=== PATIENT | female | born 1955 | race Caucasian/White ===

== ENCOUNTER 2017-08-31 11:57 | Day surgery (SDC) | payer BC ==
[~2017-08-31] VITALS: Ht 167.6 cm; Wt 149.7 kg
[~2017-08-31 11:57] MED LIST: ELIQUIS5 MG PO; GABAPENTIN300 MG PO; HUMALOG100 UNIT/2 SUB-Q; K-TAB ER20 MEQ PO; LANTUS100 UNITS/ SUB-Q; LASIX40 MG PO; LIPITOR40 MG PO; LISINOPRIL20 MG PO; METFORMIN HCL1000 MG PO; METOPROLOL SUC100 MG PO; MIRAPEX0.5 MG PO; NORCO 5-325 TA1 EACH PO; ROBAXIN-750750 MG PO; SERTRALINE HCL50 MG PO
[2017-08-31] MEDS ORDERED: ISOSORBIDE MON120 MG PO (13:34)
--- NOTE | 2017-08-31 16:48 | NUR ---
08/31/17 1648 Pauline Dawson 1645 PATIENT ARRIVES TO PACU AWAKE, ALERT AND ORIENTED X X3. RESP EVEN AND UNLABORED, MASK AT 6 LITERS. DENIES PAIN OR NAUSEA.
--- NOTE | 2017-09-01 13:35 | OR ---
[facility] [address], [place] [address] Signed DATE OF OPERATION: 08/31/2017 SURGEON: Leah Cosby MD PREOPERATIVE DIAGNOSES: 1. Colon screening. 2. Morbid obesity (330 pounds). 3. History of coronary artery bypass x5. 4. Ongoing sleep apnea (ASA class IV). POSTOPERATIVE DIAGNOSIS: Extensive sigmoid and left-sided diverticulosis. PROCEDURE PERFORMED: Total colonoscopy to cecum. ANESTHESIA: Intravenous sedation, propofol infusion, Dorie Lewis CRNA INDICATIONS: This 62-year-old morbidly obese white woman is a patient of Dr. Busby and has seen research chief engineer, Dr. Chávez at [facility] in the past. She has a distant history of pulmonary emboli and chronically anticoagulated with Eliquis. She is referred for screening colonoscopy. She is symptom-free as regards the colon. She is admitted to undergo screening colonoscopy, understands the risks of bleeding, infection, and perforation. FINDINGS: Complete colonoscopy was undertaken with visualization of the cecum. Numerous diverticula were seen in the left colon and sigmoid. There were no signs of polyps. The prep was quite good. DESCRIPTION OF PROCEDURE: The patient was brought to the endoscopy suite and placed in lateral decubitus position, given intravenous sedation with full cardiopulmonary monitoring by the technical program manager with propofol infusion. Digital rectal examination was normal. An Olympus video colonoscope was passed in the rectum and manipulated throughout the colon. Numerous diverticula were seen in the sigmoid and left colon. The scope was advanced beyond this ultimately to the right colon with visualization of the cecum. Electronically Signed By: LEAH COSBY MD 09/01/17 1335 PATIENT NAME: STEPHAN BREWER OPERATIVE REPORT DATE OF : 57 PHYSICIAN: LEAH COSBY MD REPORT #: [id number] REPORT IS CONFIDENTIAL AND NOT TO BE RELEASED WITHOUT AUTHORIZATION [facility] [address], [place] [address] Signed Abdominal wall stabilization and so forth were undertaken allowing for visualization of the cecum more fully. The biopsy forceps was used to grasp the mucosa behind the ileocecal valve, which was found to be normal as well. The scope was withdrawn from that point. Careful inspection upon withdrawal of scope showed no sign of polyps or colitis, but diverticula of the left colon and sigmoid. Retroflexed view of the rectum did show hypertrophied anal papillae, but no other abnormalities of concern. The scope was removed and the patient was taken to recovery room in good condition including diagnosis of sigmoid and left-sided diverticulosis. No evidence of polyps or cancer. PLAN: Recommend repeat colonoscopy in 10 years, sooner if symptoms should occur. She will return to the ongoing care of Dr. Geoffrey Busby in [place], [place]. MD IBAN Evangelista/JUAN LUIS /[id number] cc: MD Martin Watts MD Electronically Signed By: LEAH COSBY MD 09/01/17 1335 PATIENT NAME: SAWNORASTEPHAN Bledsoe OPERATIVE REPORT DATE OF : 57 PHYSICIAN: LEAH COSBY MD REPORT #: [id number] REPORT IS CONFIDENTIAL AND NOT TO BE RELEASED WITHOUT AUTHORIZATION
== END 2017-08-31 17:10 | disposition home or self-care (01) ==
LOC: OPS 11:57 → DS 11:57 → OPS 14:00
PROVIDERS: Surgery
PROC: 0DJD8ZZ Inspection of Lower Intestinal Tract, Via Natural or Artificial Opening Endoscopic (ICD-10-PCS; principal; 2017-08-31 14:00)
DX: Z12.11 Encounter for screening for malignant neoplasm of colon (principal); K57.30 Diverticulosis of large intestine without perforation or abscess without bleeding; G47.30 Sleep apnea, unspecified; E11.9 Type 2 diabetes mellitus without complications; I10 Essential (primary) hypertension; I25.2 Old myocardial infarction; K21.0 Gastro-esophageal reflux disease with esophagitis; E66.01 Morbid (severe) obesity due to excess calories; Z68.43 Body mass index [BMI] 50.0-59.9, adult; Z95.1 Presence of aortocoronary bypass graft; Z88.1 Allergy status to other antibiotic agents; Z90.49 Acquired absence of other specified parts of digestive tract; Z90.710 Acquired absence of both cervix and uterus; Z79.01 Long term (current) use of anticoagulants; Z86.711 Personal history of pulmonary embolism; Z99.89 Dependence on other enabling machines and devices; Z79.4 Long term (current) use of insulin; Z79.899 Other long term (current) drug therapy
CPT/HCPCS: J2250; J2704; J3010; J7120

== ENCOUNTER 2021-12-30 18:15 | Inpatient (IN) | payer MEDICARE ==
[~2021-12-30] VITALS: Ht 167.6 cm; Wt 96.6 kg
[~2021-12-30 18:15] MED LIST changes: +ADMELOG SO100 UNIT/1 SUB-Q; +CIPRO500 MG PO; +DIFLUCAN150 MG PO; +GLUCOPHAGE1000 MG PO; -HUMALOG100 UNIT/2 SUB-Q; +HUMALOG100 UNITS/ SUB-Q; +ISOSORBIDE MON120 MG PO; +NEURONTIN300 MG PO
[2021-12-30] MEDS ORDERED: TORSEMIDE10 MG PO (19:39)
[2021-12-30] MEDS ORDERED: OMEPRAZOLE20 MG PO (19:40)
--- NOTE | 2021-12-31 02:28 | NUR ---
PATIENT ARRIVED TO THE FLOOR VIA STRETCHER. PATIENT TRANSFERRED FROM STRETCHER TO HOSPITAL BED WITH FULL STAFF ASSISRANCE. ADMISSION COMPLETED. VITASL TAKEN AND RECORDED. IV FLUSHED AND SL PER ORDER. PATIENT IS ON RA. SKIN CARE COMPLETED. PATIENT ABLE TO MINIMALLY ASSIST WITH TURNING. MULTIPLE ALLEVYNS APPLIED. NO FURTHER NEEDS NOTED. SNACK PROVIDED BY OUTSIDE RESIDENTIAL SALES PROFESSIONAL. EDGAR DOE IN REACH. PRIMARY RN RONNY IN ROOM.
--- NOTE | 2021-12-31 02:48 | NUR ---
PT IS ADMITTED TO ROOM 114 FROM ED. SHE WAS ORIENTED TO HER ROOM INCLUDING THE CALL SYSTEM .PT IS INCONTINENT OF URINE. SHE IS CLEANED , BARRIER CREAM APPLIED TO PERIAREA, PANIS , WITH PILLOW CASES UNDER PANIS, UNDER BREASTS. PT IS TURNED INTO A RIGHT TILT POSITION TO OFF LOAD LEFT SIDE SKIN IRRITATIONS. PT IS BOOSTED IN BED. SHE IS GIVEN BROTH AND APPLESAUCE A SNACK. CALL LIGHT IN REACH. PT KNOWS NOT TO ATTEMPT OT GET OUT OF BED ON HER OWN.
--- NOTE | 2021-12-31 06:16 | NUR ---
call light answered, PT reports feeling nausea, prn nausea med given, see emar. emesis bag also provided, hob elevated. no additional needs, call light in reach.
--- NOTE | 2021-12-31 06:17 | NUR ---
pt had critical x2 troponin I in ed before arrival to medsur floor. per dr hart, no need for additional troponin labs.
--- NOTE | 2021-12-31 07:30 | NUR ---
report from marnie rn, pt with call light in nisha, nad.
--- NOTE | 2021-12-31 08:22 | NUR ---
Dr. Montoya her to assess pt. education on hypokalemia and weakness printed to pt.
--- NOTE | 2021-12-31 09:17 | NUR ---
Dr. Montoya asked me to hold on pt meds until she reviews records and assessment.
--- NOTE | 2021-12-31 09:20 | NUR ---
MICHAEL SUNSHINE AT [facility] TO REQUEST RECORDS.
--- NOTE | 2021-12-31 09:59 | NUR ---
GIDEON CALL BACK FROM [facility], SHE WILL FAX OVER RECORDS [facility]. [facility] STATES THAT WHEN THE PATIENT WAS DISCHARGED FROM THEIR FACILITY SHE WAS ABLE TO AMBULATE WITH A WALKER. [facility] STATES THAT THEY WERE UNABLE TO CONFIRM IF THE PATIENT SON MIRIAM RESIDED NEAR HER OR JUST IN CLOSE PROXIMITY. WILL AWAIT RECORDS.
--- NOTE | 2021-12-31 10:46 | NUR ---
rn assisted radiology assistant with bed bath and caitlin care. Pure wick external cath placed to suction to keep skin dry on severely obese pt with skin fold breakdown on all body folds. antifungl powder placed and assessment complete.
--- NOTE | 2021-12-31 12:00 | NUR ---
INTO PATIENT ROOM TO COMPLETE ASSESSMENT. PATIENT SON MIRIAM AT THE BEDSIDE. PATIENT AND SON STATES THEY CURRENTLY LIVE TOGETHER IN A TRAVEL TRAILER. PATIENT STATES THEY ARE LOOKING FOR A LARGER PLACE TO STAY. PATIENT WAS RECENTLY DISCHARGED FROM [facility] 12/14/21. SHE STATES WHEN SHE WAS DISCHARGED SHE WAS ABLE TO WALK WITH A WALKER. PATIENTS SON STATES IT WAS SHORTLY AFTER HER DISCHARGE FROM THAT HE NOTICED THE PATIENT BECOMING PROGRESSIVELY WEAKER. PATIENT SON STATES HE FEELS THAT THE PATIENT NEEDS TO RETURN TO [facility] FOR FURTHER PT BEFORE RETURNING TO HOME. MIRIAM STATES HE WORKS AT A LOCAL [employer] AND THOUGH IT IS NOT THE BUSY SEASON HE IS GONE DURING THE DAY. PATIENT SON IS ABLE TO SHOP AND LIFE SKILLS COORDINATOR MEDICATIONS FOR THE PATIENT IF NEEDED, WELL ASSIST AROUND THE HOME. DISCUSSED WITH PATIENT THAT MEDICARE WILL ONLY PAY FOR 20 DAYS OF REHAB POST HOSPITAL STAY WITHIN A 60 DAY PERIOD. DISCUSSED CONTACTING [facility]. THE PATIENT STATES SHE HAS MADE CONTACT WITH [facility], BUT WAS LATE TURING IN HER APPLICATION. PATIENT STATES THEY ENCOURAGED HER TO APPLY AGAIN. WILL CONTACT [facility] TO DETERMINE IF PATIENT CAN RETURN.
[2021-12-31] MEDS ORDERED: METOPROLOL SUCC25 MG PO (12:37)
[2021-12-31] MEDS ORDERED: ZESTRIL20 MG PO (12:37)
[2021-12-31] MEDS ORDERED: TYLENOL EXTRA500 MG PO (12:39)
[2021-12-31] MEDS ORDERED: MELATONIN3 MG PO (12:40)
--- NOTE | 2021-12-31 12:50 | NUR ---
REPORT RECEIVED FROM FLORY EASTON. ALL QUESTIONS ANSWERED.
--- NOTE | 2021-12-31 13:23 | NUR ---
PT LYING IN BED AWAKE. SON AT BEDSIDE. UNDER BREAST, PANNUS AND BUTTOCKS CLEANED, DRIED AND ANTIFUNGAL POWDER APPLIED. PURE WICK IN PLACE. PT TURNED TO LEFT SIDE. DENIES NEEDS AT THIS TIME. CALL LIGHT WITHIN REACH.
[2021-12-31] MEDS ORDERED: NYSTOP60 GM TOP (15:32)
[2021-12-31] MEDS ORDERED: NITROSTAT0.4 MG SL (15:36)
[2021-12-31] MEDS ORDERED: SERTRALINE HCL100 MG PO (15:38)
[2021-12-31] MEDS ORDERED: K-TAB10 MEQ PO (15:40)
--- NOTE | 2021-12-31 15:50 | NUR ---
PT RESTING AWAKE IN BED. DENIES NEEDS AT THIS TIME. CALL LIGHT WITHIN REACH.
[2021-12-31] MEDS ORDERED: BENADRYL ALLERG25 MG PO (15:56)
[2021-12-31] MEDS ORDERED: HYDROCODON-ACE1 EA10 PO (15:57)
--- NOTE | 2021-12-31 15:58 | NUR ---
MED REC COMPLETE
--- NOTE | 2021-12-31 16:50 | NUR ---
MICHAEL SUNSHINE AT [facility]R TO DISCUSS READMISSION OF THE PATIENT TO THEIR FACILITY IF NECESSARY.
--- NOTE | 2021-12-31 17:19 | NUR ---
PT RESTING AWAKE IN BED, ICE WATER REFILLED. DENIES FURTHER NEEDS AT THIS TIME. CALL LIGHT WITHIN REACH.
--- NOTE | 2021-12-31 19:42 | NUR ---
PT REPORT TAKEN. IV FLUSHED. PT HAD A BM. CLEANED CHANGED AND TURNED PT . SKIN APPEARS TO BE LESS REDDENED WITH CLEANING , BARRIER CREAM AND NYSTATIN POWDER. PT TOLERATED CARES WELL.
--- NOTE | 2021-12-31 20:37 | NUR ---
PATIENT VITALS AND I/Os CHARTED ACCORDINGLY. ROOM TIDIED. TRASH EMPTIED. CALL LIGHT LEFT WITHIN REACH. NO OTHER IMMEDIATE NEEDS AT THIS TIME.
--- NOTE | 2021-12-31 23:07 | NUR ---
PT TURNED TO RIGHT TILT POSITION WITH PILLOWS AT HER BACK AND BETWEEN HER THIGHS. PT STATES THAT FEELS BETTER. CALL LIGHT IN REACH.
--- NOTE | 2022-01-01 01:00 | NUR ---
PT TURNED TO BACK FROM RIGHT TILT. TOLERATED WELL. CALL LIGHT IN REACH.
--- NOTE | 2022-01-01 03:35 | NUR ---
PT HAD A LARGE LOOSE STOOL. SHE SLEPT THROUGH IT AND WAS UNAWARE. PT WAS CLEANED, BARRIER CREAM APPLIED , DRAW SHEET, CHUX, ATTENDS AND GOWN WERE CHANGED. PT WAS TURNED ONTO HER BACK WITH A PILLOW TO ELEVATE HER HEELS. CALL LIGHT IN REACH.
--- NOTE | 2022-01-01 06:07 | NUR ---
PT WAS TURNED TO A LEFT TILT POSITION. SHE HAS PILLOWS FOR SUPPORT. A PUREWIK IN PLACE. WARM BLANKET APPLIED. CALL LIGHT IN REACH.
--- NOTE | 2022-01-01 06:24 | NUR ---
PT RECEIVED 2 MAG RIDERS. HER AM MAG= 1.7. HER K+ = 3.6 THIS AM. PT DID HAVE 3 BMS THIS SHIFT. ALL WERE LOOSE CAAL/BROWN STOOL. PT WAS UNAWARE OF 1 STOOL SHE SLEPT THROUGH IT. SHE DOES HAVE A PUREWICK IN PLACE HOWEVER IT ONLY DRAINED A SMALL AMOUNT OF URINE DUE TO THE LOOSE STOOLS OBSTRUCTING THE FLOW. PT VSS, AFEBRILE. SKIN HAS BEEN CLEANED AND NYSTATIN POWDER OR BARRIER CREAM APPLIED. SKIN REDNESS IS REDUCED . PT IS TURNED Q 2 HRS.
--- NOTE | 2022-01-01 07:48 | NUR ---
RECJuan Ramon. BEDSIDE REPORT FROM NIGHT RN, ASSUMED ALL CARE OF PT.
--- NOTE | 2022-01-01 10:30 | NUR ---
ASSISTED PT. IN BR WITH COMPLETE SHOWER AND BED LINEN CHANGES. ORAL CARE WELL.
--- NOTE | 2022-01-01 14:00 | NUR ---
PLAN IS TO USE THE BSC FOR URINATION, PT. STATES SHE FEELS WHEN SHE HAS TO GO AND WORKED WITH PT. ON SIT TO STAND, COULD NOT AMBULATE TODAY, TOO WEAK AND GOT UPSET. SHE WILL CALL AND SHE WILL TRY USING THE BSC. IV PATENT TO MAGNESIUM RIDERS. WOUND CONSULT COMPLETED TODAY.
[2022-01-01] MEDS ORDERED: MIRALAX119 GM PO (14:15)
[2022-01-01] MEDS ORDERED: SILVADENE20 GM TOP (14:17)
[2022-01-01] MEDS ORDERED: DULCOLAX10 MG PR (14:21)
[2022-01-01] MEDS ORDERED: LASIX40 MG PO (14:22)
[2022-01-01] MEDS ORDERED: KLOR-CON 1010 MEQ PO (14:24)
[2022-01-01] MEDS ORDERED: WARFARIN SODIUM10 MG PO (14:25)
[2022-01-01] MEDS ORDERED: ROPINIROLE HCL1 MG PO (14:25)
[2022-01-01] MEDS ORDERED: ZOLOFT50 MG PO (14:25)
[2022-01-01] MEDS ORDERED: ADULT LOW DOSE81 MG PO (14:41)
--- NOTE | 2022-01-01 14:46 | NUR ---
MED REC UPDATED
[2022-01-01] MEDS ORDERED: LANTUS SOL100 UNIT/1 SUB-Q (14:50)
--- NOTE | 2022-01-01 18:03 | NUR ---
WOUND CONSULT TO BEDSIDE FOR WOUND CONSULT. PT WITH MOISTURE ASSOSIATED SKIN BREAKDOWN UNDER PANNUS AND BILATERAL BREAST. PICTURES TAKEN. PT HAS URINE BURN ON GLUTEAL FOLD PICTURES TAKEN. PT WITH TWO VENOUS WOUNDS ON BILATERAL POSTERIOR CALVES. PICTURES TAKEN. DRESSING ORDERS WRITTEN.
--- NOTE | 2022-01-01 18:22 | NUR ---
PROGRESSIVE DAY TODAY, PT. UP WITH PT, STOOD TO FWW INDEPENDENTLY, COULD NOT WALK, TOO WEAK BUT HAS NOT WALKED MUCH SINCE SHE WAS HOME. SHE WAS UP TO FWW 2 MORE TIMES AND SAT IN THE CHAIR FOR DINNER AND AFTERWARDS VISITING WITH HER SON WHO IS HER PRIMARY CAREGIVER. ALL VSS, LUNGS CLEAR BILAT. ON RA. LUNGS CLEAR BILATERALLY. VSS, WOUND CONSULT COMPLETED AND DRESSINGS CHANGED AND SKIN CARE COMPLETE. DIFLUCAN PO X 1. IV MAG REPLACED FOR 1.7. K+ PO, GOOD APPETITE, ADEQUATE LIQUIDS, PM=[phone]. SHOWERED TODAY AND LINEN CHANGED, ORAL CARE. ELIQUIS CHANGED TO COUMADIN, PHARMACY TO DOSE. PATRICE MORRISON PLACED. USED BSC TODAY FOR URINE AND BM. TURNED Q 2 HR, BUT UP AND DOWN MOST OF THE DAY.
--- NOTE | 2022-01-01 19:36 | NUR ---
SHIFT REPORT FROM [employer] PRESSURIZATION MECHANIC, PT UP TO BEDSIDE COMMODE AT THIS TIME., PER REPORT PT HAD SHOWER HAS BEEN UP TO BEDSIDE COMMODE. HAD TWO BM SECOND FORMED. WOUND CARE NURSE TREATED AND DRESSED ALL WOUNDS TODAY WITH PHOTOS IN CHART.
--- NOTE | 2022-01-01 21:00 | NUR ---
PT BACK IN BED FOLDS WASHED AND RE-POWDERED WITH RX POWDER. PT TOLERATED CARE WELL, ASSESSMENT COMPLETE, NO NEW CONCERNS AT THIS TIME, PT REQUESTS PUREWICK PLACEMENT SHE FEELS SHE WILL NOT BE ABLE TO SLEEP WELL OR GET UP FAST ENOUGH TO NOT BE INCONT OVER NIGHT.
--- NOTE | 2022-01-02 00:16 | NUR ---
PT CALLED NURSES STATION TO REQUEST PATRICE HOSE COMPRESSION SOCKS TO BE REMOVED FOR A BREAK THEY FEEL LIKE THEY ARE CUTTING INTO HER LEGS, THIS RN AND MANAGER RELOCATION INTO PT ROOM TO ADJUST PATRICE HOSE, BUT NOT TO REMOVE, WILL CONTINUE TO MONITOR AND ADJUST NEEDED. FRESH ICE WATER PROVIDED NO OTHER CONCERNS AT THIS TIME.
--- NOTE | 2022-01-02 05:22 | NUR ---
PT REPORTS SHE DID NOT SLEEP WELL OVER SHIFT, PUREWICK IN PLACE TO PROTECT SKIN WHILE SLEEPING AT HS, SHE REPORTS NO PAIN OR NAUSEA WHILE AT REST, PAIN WITH WOUND CARE RESOLVES ONCE COMPLETED. SHE HAS HAD INCONT WELL URINE COUNT VIA PUREWICK. OTHER THAN NOT SLEEPING WELL, NO NEW CONCERNS OVER SHIFTS.
--- NOTE | 2022-01-02 05:38 | NUR ---
pt up to bedside commode at this time. two person stand pivot. toelrated activity well with fww
--- NOTE | 2022-01-02 05:57 | NUR ---
pt now up to recliner, after having bm and voiding in commode.
--- NOTE | 2022-01-02 07:56 | NUR ---
ELIUD. BEDSIDE REPORT FROM NIGHT RN, PT. OOB IN CHAIR RESTING QUIETLY, NO COMPLAINTS OF PAIN, SHE DID NOT SLEEP WELL LAST NIGHT THOUGH, PUREWICK USED THRU THE NIGHT AND REMOVED THIS AM. SHE WILL GET UP TO BR OR BSC TODAY. WORKING WITH PT.
--- NOTE | 2022-01-02 11:38 | NUR ---
PT. AMBULATED WITH PT INTO THE CUELLO APPROX. 80 FT. WITH FWW. INDEPENDENT TO FWW FROM SITTING TO STAND. USING BSC, GAVE LASIX 40 FOR A DAILY DOSE.
--- NOTE | 2022-01-02 12:31 | EKG ---
[facility] [address] [place], [place] [address] Signed Atrial fibrillation Cannot rule out Anterior infarct , age undetermined ST \T\ T wave abnormality, consider inferolateral ischemia Abnormal ECG No previous ECGs available Confirmed by LIZETH KNAPP MD ([id number]) on 01/02/2022 12:31:32 PM Electronically Signed By: LIZETH KNAPP MD 01/02/22 1231 PATIENT NAME: STEPHAN BREWER Electrocardiogram DATE OF : 57 PHYSICIAN: LIZETH KNAPP MD REPORT #: [id number] REPORT IS CONFIDENTIAL AND NOT TO BE RELEASED WITHOUT AUTHORIZATION
--- NOTE | 2022-01-02 12:50 | NUR ---
OOB IN CHAIR EATING LUNCH, GAVE 3 UNITS HUMALOG, RESTING COMFORTABLY TODAY. IV FLUSHED, CAP PLACED. DENIES ANY PAIN, DRINKING ADEQUATE FLUIDS. GAVE LASIX PO.
--- NOTE | 2022-01-02 14:47 | NUR ---
HOSPITAL DAY 2, ELECTROLYTES BALANCED, AMBULATED 80 FT TODAY IN THE HALLS WITH REST BREAKS. OOB IN CHAIR A GOOD PART OF THE DAY. WOUND CARE WITH DRESSING CHANGE Q 3 DAYS TO R LE AND BUTTOCKS, ALSO REMEDY POWDER TO SKIN FOLDS SEVERAL TIMES DAILY AND PRN. WAS BEING FOLLOWED BY OUTPT. WOUND CARE. ELIQUIS CHANGED TO COUMADIN. INR 1.44. USING BSC DURING THE DAY AND PUREWICK AT NIGHT TO PREVENT FURTHER SKIN BREAKDOWN. GOOD APPETITE, ADEQUATE FLUIDS.
--- NOTE | 2022-01-02 19:23 | NUR ---
REPORT RECEIVED FROM DAY SHIFT RN. PT LYING IN BED ALERT AND ORIENTED. DENIES NEEDS. WHITE BOARD UPDATED. CALL LIGHT IN REACH.
--- NOTE | 2022-01-02 21:45 | NUR ---
PT INCONTINENT OF LARGE AMOUNT OF URINE. UP TO BSC TO CHANGE LINEN. PT ABLE TO VOID AND HAVE MEDIUM FORMED BM. STAFF ASSIST WITH JUANY CARE. BACK TO BED, JEFFREY FAIR. PT TIRES EASILY. NEEDS ASSISTANCE GETTING LEGS INTO BED. EVENING ASSESSMENT COMPLETE. SCHEDULED MEDS ADMIN PER EMAR. PT REPORTS HEADACHE PAIN 12/24. PRN FOR PAIN ADMIN. PT DENIES NAUSEA. SKIN FOLDS CLEANED AND POWDER APPLIED WITH PILLOW CASES IN FOLDS. DRESSINGS TO BLE INTACT. PATRICE HOSE IN PLACE. EXTERNAL CATHETER PLACED. ASSISTED PT TO REPOSITION TO RIGHT SIDE WITH PILLOWS. VS AND I&O COMPLETE. PT DENIES QUESTIONS OR CONCERNS. CALL LIGHT IN REACH.
--- NOTE | 2022-01-02 23:39 | NUR ---
PT RESTING IN BED WITH EYES CLOSED. RESPIRATIONS EVEN. CALL LIGHT IN REACH.
--- NOTE | 2022-01-03 02:50 | NUR ---
PT RESTING WITH EYES CLOSED. AWAKENS BRIEFLY. PILLOWS BEHIND LEFT SIDE. PUREWICK PATENT WITH CLEAR YELLOW URINE. NO FURTHER NEEDS. CALL LIGHT IN REACH.
--- NOTE | 2022-01-03 06:09 | NUR ---
VS AND I&O COMPLETE. SCHEDULED MEDS ADMIN PER EMAR. ASSISTED PT TO REPOSITION IN BED. REPORTS SHE IS COMFORTABLE. DENIES FURTHER NEEDS. CALL LIGHT IN REACH.
--- NOTE | 2022-01-03 07:15 | NUR ---
bedside report from Linda rn, pt resting, call light in reach.
--- NOTE | 2022-01-03 09:27 | NUR ---
PATIENT HAD LARGE INCONT. BM. THIS STEREOTYPE MOLDER AND CHARGE NURSE IN TO ASSIST PATIENT. JUANY CARE AND SKIN CARE DONE. NEW PUREWICK AND ATTENDS IN PLACE. VITALS AND I&O'S CHARTED. CALL LIGHT IN REACH. FRESH WATER GIVEN. NO FURTHER NEEDS AT THIS TIME.
--- NOTE | 2022-01-03 12:52 | NUR ---
PT ALERT, ORIENTED AND MENTIONED THAT SHE SLEPT WELL LAST NIGHT.ALSO FEELS SHE IS MUCH IMPROVED SINCE ADMISSION. GAVE ENCOURAGEMENT, G.POST AND ALSO BLESSING. WILL FOLLOW
--- NOTE | 2022-01-03 14:09 | NUR ---
visited with pt and son about labs for tomorrow am and stay overnight - they agree with Dr. sam up in , denies needs.
--- NOTE | 2022-01-03 14:44 | NUR ---
PATIENT IN CHAIR WATCHING TV. VITALS AND I&O'S CHARTED. PATIENT UP TO BSC AND BACK TO CHAIR, 1PA FWW. LARGE INCONT. VOID. JUANY CARE AND SKIN CARE DONE. NEW GOWN AND ATTENDS IN PLACE. YESSIWICK REPLACED UPON RN REQUEST. RN IN ROOM AT THIS TIME TO DO DRESSING CHANGE. CALL LIGHT IN REACH. NO FURTHER NEEDS AT THIS TIME.
--- NOTE | 2022-01-03 15:35 | NUR ---
dressing change done to bilateral leg wounds. left leg wound cleaned with wound cleanser - appears compared to photo to be improving. covered with alyven dated. ernestina hose clean replaced. r leg dressing found with aquacel dressing, covered with alyven then ernestina hose, old drainage covered by abd pad and gauze wrapped. removed all dressings washed 2 wounds - they appear similar to original picture in chart, aquacel dressing placed and covered with new clean ernestina hose. charge preparation technician and merchandising internship laly here and aware. next aquacel dressing taped to wall for staff to easily find size. pt encouraged to move and bend legs frequently. also encouraged to keep wrinkles out of ernestina hose.
--- NOTE | 2022-01-03 17:32 | NUR ---
pt up in , denies needs, call light in reach - waiting for dinner. accucheck/complete.
--- NOTE | 2022-01-03 19:22 | NUR ---
REPORT RECEIVED FROM DAY SHIFT RN. PT LYING IN BED ALERT AND ORIENTED. DENIES NEEDS. WHITE BOARD UPDATED. CALL LIGHT IN REACH.
--- NOTE | 2022-01-03 21:15 | NUR ---
ASSISTED PRIMARY RN BRAYAN. CLEANING AND APPLYING POWDER TO PATIENT'S UNDERBREAST'S AND UNDER ABDOMEN'S FOLDS. PATIENT REPOSTIONED WITH 2 PILLOWS ON PATIENT'S RIGHT SIDE.
--- NOTE | 2022-01-03 21:20 | NUR ---
EVENING ASSESSMENT COMPLETE. SCHEDULED MEDS ADMIN PER EMAR. PT C/O HEADACHE. PRN FOR PAIN ADMIN. DRESSINGS ON BILAT CALVES CDI. PATRICE HOSE IN PLACE. BLE ELEVATED ON PILLOWS. UNDER BREASTS, PANNUS AREA, AND SKIN FOLDS ON BACK CLEANED AND POWDER PLACED. ASSISTED PT TO REPOSITION WITH PILLOWS. PUREWICK IN PLACE FOR INCONTINENCE CARE. PT DENIES QUESTIONS OR CONCERNS. CALL LIGHT IN REACH.
--- NOTE | 2022-01-04 00:46 | NUR ---
PT RESTING IN BED WITH EYES CLOSED. RESPIRATIONS EVEN. CALL LIGHT IN REACH.
--- NOTE | 2022-01-04 03:32 | NUR ---
PT RESTING WITH EYES CLOSED. SpO2 92% ON RA. HR 60'S. RESPIRATIONS EVEN. CALL LIGHT IN REACH.
--- NOTE | 2022-01-04 05:45 | NUR ---
VS AND I&O COMPLETE. PT INCONTINENT OF LARGE AMOUNT OF URINE. PT UP TO BSC TO VOID. STAFF ASSIST WITH JUANY CARE. DAILY WEIGHT OBTAINED. BACK TO BED, JEFFREY FAIR. SCHEDULED MEDS ADMINISTERED. PT DENIES FURTHER NEEDS. CALL LIGHT IN REACH.
--- NOTE | 2022-01-04 10:05 | NUR ---
PATIENT IN BED WATCHING TV AT THIS TIME. VITALS AND I&O'S CHARTED. PATIENT REPOSITIONED SELF IN BED. PILLOW PLACED UNDER LEFT HIP. JUANY CARE AND SKIN CARE DONE. CALL LIGHT IN REACH. NO FURTHER NEEDS AT THIS TIME.
--- NOTE | 2022-01-04 10:18 | NUR ---
Patient awake watching tv, no distress. Patient denies pain at this time. IV site patent, IV mag started per provider order. Patient denies needs at this time. Call light within reach.
[2022-01-04] MEDS ORDERED: WARFARIN SODIUM10 MG PO (11:52)
[2022-01-04] MEDS ORDERED: LIPITOR40 MG PO (11:52)
[2022-01-04] MEDS ORDERED: METOPROLOL SUCC25 MG PO (11:53)
[2022-01-04] MEDS ORDERED: LASIX40 MG PO (11:54)
[2022-01-04] MEDS ORDERED: FLUCONAZOLE150 MG PO (11:56)
[2022-01-04] MEDS ORDERED: NYAMYC15 GM TOP (11:57)
--- NOTE | 2022-01-04 12:30 | NUR ---
Spoke with pt and she states she will be going home with her son to live with him. Pt has a ramp and denies need for any DME. Pt would like HH from [facility] in [place]. I called and they do service Edith. Dr. Tong notified and completed paperwork for HH for this pt. Face sheet, H&P, DC summary, referral faxed to [facility].
--- NOTE | 2022-01-04 13:24 | NUR ---
assumed care - pt dc oreders in waiting for ride home.
--- NOTE | 2022-01-05 14:00 | NUR ---
Son here and denies needs for pt to go home.
== END 2022-01-04 14:20 | disposition home health service (06) | DRG 948 ==
LOC: ED 18:15 → MS 18:18
PROVIDERS: ADMIT Internal Medicine; ATTEND Internal Medicine
DX: R53.1 Weakness (principal); I48.20 Chronic atrial fibrillation, unspecified; Z68.41 Body mass index [BMI] 40.0-44.9, adult; I13.0 Hypertensive heart and chronic kidney disease with heart failure and stage 1 through stage 4 chronic kidney disease, or unspecified chronic kidney disease; I50.32 Chronic diastolic (congestive) heart failure; E87.6 Hypokalemia; Z20.822 Contact with and (suspected) exposure to COVID-19; Z66 Do not resuscitate; E83.42 Hypomagnesemia; I27.29 Other secondary pulmonary hypertension; D72.829 Elevated white blood cell count, unspecified; E11.22 Type 2 diabetes mellitus with diabetic chronic kidney disease; N18.30 Chronic kidney disease, stage 3 unspecified; G47.33 Obstructive sleep apnea (adult) (pediatric); I25.10 Atherosclerotic heart disease of native coronary artery without angina pectoris; K21.9 Gastro-esophageal reflux disease without esophagitis; G25.81 Restless legs syndrome; M48.00 Spinal stenosis, site unspecified; E66.01 Morbid (severe) obesity due to excess calories; F39 Unspecified mood [affective] disorder; Z86.711 Personal history of pulmonary embolism; Z95.1 Presence of aortocoronary bypass graft; Z90.49 Acquired absence of other specified parts of digestive tract; Z90.710 Acquired absence of both cervix and uterus; Z79.4 Long term (current) use of insulin; Z79.01 Long term (current) use of anticoagulants; Z79.899 Other long term (current) drug therapy; Z88.1 Allergy status to other antibiotic agents; Z86.73 Personal history of transient ischemic attack (TIA), and cerebral infarction without residual deficits
CPT/HCPCS: 36415; 51701; 71045; 80048; 80053; 81001; 83036; 83605; 83735; 83880; 84484; 85025; 85610; 85730; 87040; 87088; 87186; 87502; 93005; 93010; 96375; 97116; 97162; 97166; 97530; 97535; 99285-25; A9270; C9803; G0378; J1815; J1940; J2405; J3475; J3480; J7030; U0003